=== PATIENT | female | born 1965 | race Caucasian/White ===

== ENCOUNTER 2016-10-15 07:50 | Emergency (ER) | payer SELFPAY ==
[~2016-10-15] VITALS: Ht 172.7 cm; Wt 68.0 kg
[~2016-10-15 07:50] MED LIST: CLON1 PO; IBUP-232 PO; ONDA4TAB7 PO; PARO10TA PO; ROBA750T PO
[2016-10-15 07:52] VITALS: BP 140/93; PULSE 98; RESP 20; TEMP 98; O2SAT 97
--- NOTE | 2016-10-15 08:07 | PD ---
HPI Chief Complaint: Laceration/Skin Injury Time Seen by Provider: 07:56 Travel History International Travel<30 days: No Contact w/Intl Traveler<30days: No Traveled to known affect area: No History of Present Illness HPI 51-year-old right-hand dominant female presents for evaluation of a cut to her left thumb. She reports that this morning prior to arrival she was cutting referred for a smoothie when she cut her left thumb. She has a wound to the left thumb which has been bleeding and this is the primary reason that she came in. She is not on any blood thinning medication. Last tetanus vaccination was within one year. She has no other complaints. PFSH Past Medical History Anxiety: Yes Depression: Yes Cardiovascular Problems: Yes Chest Pain: Yes Diminished Hearing: No Gastrointestinal Disorders: Yes Musculoskeletal: Yes Psychiatric: Yes Immunizations Current: Yes Myocardial Infarction: No Menopausal: Yes : 6 Para: 4 Miscarriage: 1 : 1 Tubal Ligation: Yes Social History Alcohol Use: Yes (6-8 BEERS DAILY) Tobacco Use: No Substance Use: No Allergies-Medications (Allergen,Severity, Reaction): Coded Allergies: Hydrocodone (Verified Allergy, Severe, Itching, 07/05/16) Sulfa (Verified Allergy, Severe, 07/05/16) Tramadol (Verified Allergy, Severe, Tachycardia, 07/05/16) Codeine (Verified Allergy, Unknown, 07/05/16) patient states that this medication makes her feel "funny" and prefers not to take it. Ultram (Verified Allergy, Unknown, 07/05/16) Reported Meds & Prescriptions Reported Meds & Active Scripts Active Robaxin (Methocarbamol) 750 Mg Tab 750 Mg PO TID PRN Ibuprofen 600 Mg Tab 600 Mg PO TID PRN Ondansetron Odt4 M1 4 Mg Tab 4 Mg PO Q6H PRN Reported Klonopin (Clonazepam) 1 Mg Tab 1 Mg PO BID PRN Paxil (Paroxetine HCl) 10 Mg Tab 10 Mg PO DAILY Review of Systems Musculoskeletal: No: Limited ROM Skin: Positive Other (laceration, bleeding) Neurologic: No: Paresthesia Physical Exam Narrative GENERAL: Well-developed well-nourished female in no acute distress SKIN: Warm and dry. On the left distal thumb there is a superficial linear laceration. There is another very superficial laceration adjacent. There is no subcutaneous tissue or bony or tendon visibility. CARDIOVASCULAR: Regular rate and rhythm. No murmur appreciated. RESPIRATORY: No accessory muscle use. Clear to auscultation. Breath sounds equal bilaterally. MUSCULOSKELETAL: No obvious deformities. Skin as noted above. Full range of motion of the affected thumb. Data Data Last Documented VS Vital Signs Date Time Temp Pulse Resp B/P Pulse Ox O2 Delivery O2 Flow Rate FiO2 10/15/16 07:52 98.0 98 20 140/93 97 Room Air MDM Medical Decision Making Medical Screen Exam Complete: Yes Emergency Medical Condition: Yes Medical Record Reviewed: Yes Differential Diagnosis Superficial laceration, puncture wound, uncontrolled bleeding, abrasion Narrative Course 51-year-old female with 2 very superficial lacerations to the distal left thumb which do not require primary repair as they are very superficial. They're not currently bleeding with the patient reports that her bleeding prior to arrival and she was having difficulty stopping the bleeding. A pressure dressing will be applied. Patient is encouraged to wear it for 2 days and then wash gently and reapply dressing daily until healed. She is stable for discharge. Departure Forms: Tests/Procedures, Work Release Enter return to work date: Oct 16, 2016 Additional Instructions: As discussed, leave the dressing on for 48 hours. When he removed it, wash gently with soap and water and apply antibiotic cream and clean bandages. It may bleed a small amount when you wash it so do no be alarmed if this happens. reapply a dressing daily for the next 1-2 weeks. Do not apply the dressing too tightly. Return for any evidence of infection such as increasing area of redness around the wound, red streaks up the arm, fevers. Med/Other Pt SpecificInfo: Wound Care Disposition: 01 DISCHARGE HOME Condition: Stable Alexander Haynes Oct 15, 2016 08:07
== END 2016-10-15 09:15 | disposition home or self-care (01) ==
LOC: NEPB 07:50
DX: S61.012A Laceration without foreign body of left thumb without damage to nail, initial encounter (principal); W45.8XXA Other foreign body or object entering through skin, initial encounter
CPT/HCPCS: 99282

== ENCOUNTER 2016-11-07 09:47 | Observation (INO) | payer SELFPAY ==
[~2016-11-07] VITALS: Ht 165.1 cm; Wt 80.0 kg
[2016-11-07 09:49] VITALS: BP 126/76; PULSE 83; RESP 18; TEMP 97.7; O2SAT 99
[2016-11-07 10:45] VITALS: RESP 18; O2SAT 99
[2016-11-07] MEDS ORDERED: ASPIRIN 325 MG TAB PO ONE (10:45)
[2016-11-07] MEDS ORDERED: SODIUM CHLORIDE 0.9% FLUSH 5 ML FLUSH IVF PRN ×2 (10:45→13:15)
--- NOTE | 2016-11-07 10:46 | PD ---
HPI Chief Complaint: Cardiac Complaint Time Seen by Provider: 10:23 Travel History International Travel<30 days: No Contact w/Intl Traveler<30days: No Traveled to known affect area: No History of Present Illness HPI The patient was seen and examined in the presence of the nurse. This patient complains of chest pain. Location is center sternum. Duration is 5 days. He describes it as a tightness and heaviness. It is not exertional. She denies personal history of cardiac disease. Reports a negative stress test about 5 years ago. She does have anxiety problems. No alleviating factors. PFSH Past Medical History Anxiety: Yes Depression: Yes Cardiovascular Problems: Yes Chest Pain: Yes Diminished Hearing: No Gastrointestinal Disorders: Yes Musculoskeletal: Yes Psychiatric: Yes Immunizations Current: Yes Myocardial Infarction: No ?: Not Menopausal: Yes : 6 Para: 4 Miscarriage: 1 : 1 Tubal Ligation: Yes Social History Alcohol Use: Yes (1-2 OCCASIONAL PER PT) Tobacco Use: No Substance Use: No Allergies-Medications (Allergen,Severity, Reaction): Coded Allergies: Hydrocodone (Verified Allergy, Severe, Itching, 11/07/16) Sulfa (Verified Allergy, Severe, 11/07/16) Tramadol (Verified Allergy, Severe, Tachycardia, 11/07/16) Codeine (Verified Allergy, Unknown, 11/07/16) patient states that this medication makes her feel "funny" and prefers not to take it. Ultram (Verified Allergy, Unknown, 11/07/16) Reported Meds & Prescriptions Reported Meds & Active Scripts Active Review of Systems General / Constitutional: No: Fever Eyes: No: Visual changes HENT: No: Headaches Cardiovascular: Positive: Chest Pain or Discomfort Respiratory: No: Shortness of Breath Gastrointestinal: No: Abdominal Pain Genitourinary: No: Dysuria Musculoskeletal: No: Pain Skin: No Rash Neurologic: No: Weakness Psychiatric: Positive: Anxiety, No: Depression Endocrine: No: Polydipsia Hematologic/Lymphatic: No: Easy Bruising Physical Exam Narrative GENERAL: Well-nourished, well-developed patient in no apparent distress. SKIN: Warm and dry. HEAD: Atraumatic. Normocephalic. EYES: Pupils equal and round. No scleral icterus. No injection or drainage. ENT: No nasal bleeding or discharge. Mucous membranes pink and moist. NECK: Trachea midline. No JVD. CARDIOVASCULAR: Regular rate and rhythm. No murmur appreciated. RESPIRATORY: No accessory muscle use. Clear to auscultation. Breath sounds equal bilaterally. GASTROINTESTINAL: Abdomen soft, non-tender, nondistended. Hepatic and splenic margins not palpable. MUSCULOSKELETAL: No obvious deformities. No clubbing. No cyanosis. No edema. Chest wall is very tender in the sternum but she says this is entirely different than the pain she's been having for the last 5 days. NEUROLOGICAL: Awake and alert. No obvious cranial nerve deficits. Motor grossly within normal limits. Normal speech. PSYCHIATRIC: Anxious mood and affect; insight and judgment normal. Data Data Last Documented VS Vital Signs Date Time Temp Pulse Resp B/P Pulse Ox O2 Delivery O2 Flow Rate FiO2 11/07/16 11:54 78 18 110/69 100 Room Air 11/07/16 09:53 2 11/07/16 09:49 97.7 Orders Electrocardiogram (11/07/16 10:40) Basic Metabolic Panel (Bmp) (11/07/16 10:40) Ckmb (Isoenzyme) Profile (11/07/16 10:40) Complete Blood Count With Diff (11/07/16 10:40) Prothrombin Time / Inr (Pt) (11/07/16 10:40) Act Partial Throm Time (Ptt) (11/07/16 10:40) Troponin I (11/07/16 10:40) Chest, Single Ap (11/07/16 10:40) Ecg Monitoring (11/07/16 10:40) Iv Access Insert/Monitor (11/07/16 10:40) Oximetry (11/07/16 10:40) Aspirin (Aspirin) (11/07/16 10:45) Sodium Chloride 0.9% Flush (Ns Flush) (11/07/16 10:45) Lorazepam (Ativan) (11/07/16 11:00) Labs Laboratory Tests Test 11/07/16 11:00 White Blood Count 3.9 TH/MM3 Red Blood Count 4.39 MIL/MM3 Hemoglobin 13.9 GM/DL Hematocrit 42.6 % Mean Corpuscular Volume 97.1 FL Mean Corpuscular Hemoglobin 31.8 PG Mean Corpuscular Hemoglobin 32.8 % Concent Red Cell Distribution Width 13.8 % Platelet Count 203 TH/MM3 Mean Platelet Volume 8.1 FL Neutrophils (%) (Auto) 42.9 % Lymphocytes (%) (Auto) 44.8 % Monocytes (%) (Auto) 10.1 % Eosinophils (%) (Auto) 1.2 % Basophils (%) (Auto) 1.0 % Neutrophils # (Auto) 1.7 TH/MM3 Lymphocytes # (Auto) 1.7 TH/MM3 Monocytes # (Auto) 0.4 TH/MM3 Eosinophils # (Auto) 0.0 TH/MM3 Basophils # (Auto) 0.0 TH/MM3 CBC Comment DIFF FINAL Differential Comment Prothrombin Time 10.2 SEC Prothromb Time International 0.9 RATIO Ratio Activated Partial 25.4 SEC Thromboplast Time Sodium Level 138 MEQ/L Potassium Level 3.7 MEQ/L Chloride Level 104 MEQ/L Carbon Dioxide Level 25.5 MEQ/L Anion Gap 9 MEQ/L Blood Urea Nitrogen 9 MG/DL Creatinine 0.58 MG/DL Estimat Glomerular Filtration 109 ML/MIN Rate Random Glucose 110 MG/DL Calcium Level 8.9 MG/DL Total Creatine Kinase 46 U/L Troponin I LESS THAN 0.02 NG/ML MDM Medical Decision Making Medical Screen Exam Complete: Yes Emergency Medical Condition: Yes Medical Record Reviewed: Yes Differential Diagnosis Differential diagnosis includes SD, angina, pericarditis, pleurisy, GERD, anxiety. Narrative Course I have reviewed the patient's electronic medical record. She is a frequent visitor to the ER. Was here one month ago with laceration. IV placed I reviewed the EKG which shows sinus rhythm but no ST elevation or ectopy I reviewed the chest x-ray and I noted the radiologist's report. I reviewed the films I don't see any significant thing that needs treatment. She has no symptoms consistent with rest or infection. Any infiltrate there is very minimal Extended cardiac monitoring shows sinus rhythm without ectopy CBC shows normal findings Metabolic profile is normal CK is normal Troponin is normal Coagulation studies are normal Gave her an aspirin and a dose of Ativan Patient has atypical pain as well as a different type of obvious musculoskeletal pain which she says is not like the pain that brought her here. She does have family history of urinary artery disease and I'm going to make her 23 hour observation in the chest pain center in order to rule out cardiac cause of her symptoms. It's possible this is anxiety driven Diagnosis Primary Impression: Chest pain in adult Admitting Information Admitting Physician Requests: Observation Garrick Mcguire MD Nov 07, 2016 10:46
[2016-11-07] MEDS ORDERED: LORazepam 1 MG TAB PO ONE (11:00)
--- NOTE | 2016-11-07 11:16 | RADRPT ---
EXAM DATE/TIME: 11/07/2016 10:44 [facility] COMPARISON: CHEST SINGLE AP, July 05, 2016, 16:27. INDICATIONS : Patient has felt tightness in her chest since Sunday. MEDICAL HISTORY : None. SURGICAL HISTORY : Bilateral breast augmentation. ENCOUNTER: Initial ACUITY: 3 days PAIN SCORE: 0/10 LOCATION: Bilateral chest FINDINGS: A single view of the chest demonstrates patchy airspace disease in the left base/lingula. Lungs other ann clear. Heart size is normal. 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 Osseous structures are otherwise int act. Patient appears to have had bilateral breast augmentation. CONCLUSION: 1. Nonspecific, patchy airspace disease in the left lower lung field. Findings could represent atelec tasis or early infiltrate. 2. Stable osseous changes with osteoarthritic findings in the right a.c. joint and an old healed frac ture deformity of the left clavicular diaphysis. Cristóbal Dale MD on November 07, 2016 at 11:13 Board Certified Radiologist. This report was verified electronically.
[2016-11-07 11:22] LABS: AUTOMATED NEUTROPHIL # 1.7 TH/MM3 (1.8-7.7); EOSINOPHIL % 1.2 % (0.0-4.0); HEMATOCRIT 42.6 % (35.0-46.0); HEMO FLAGS DIFF FINAL; LYMPH % 44.8 % (9.0-44.0); LYMPHOCYTE # 1.7 TH/MM3 (1.0-4.8); MEAN CELL VOLUME 97.1 FL (80.0-100.0); MEAN CORPUSCULAR HEMOGLOBIN 31.8 PG (27.0-34.0); MEAN CORPUSCULAR HGB CONC 32.8 % (32.0-36.0); MONO % 10.1 % (0.0-8.0); NEUT % 42.9 % (16.0-70.0); PLATELET COUNT 203 TH/MM3 (150-450); RED BLOOD COUNT 4.39 MIL/MM3 (4.00-5.30); RED CELL DISTRIBUTION WIDTH 13.8 % (11.6-17.2); WHITE BLOOD COUNT 3.9 TH/MM3 (4.0-11.0)
[2016-11-07 11:30] LABS: APTT (PATIENT) 25.4 SEC (24.3-30.1); INTERNATIONAL NORMALIZED RATIO 0.9 RATIO; PROTHROMBIN TIME - PATIENT 10.2 SEC (9.8-11.6)
[2016-11-07 11:45] LABS: ANION GAP 9 MEQ/L (5-15); BICARBONATE 25.5 MEQ/L (21.0-32.0); BLOOD UREA NITROGEN 9 MG/DL (7-18); CHLORIDE 104 MEQ/L (98-107); GLOMERULAR FILTRATION RATE 109 ML/MIN (>89); POTASSIUM 3.7 MEQ/L (3.5-5.1); SODIUM (NA) 138 MEQ/L (136-145)
[2016-11-07 11:52] LABS: CREATINE KINASE 46 U/L (26-192)
[2016-11-07 11:54] VITALS: BP 110/69; PULSE 78; RESP 18; O2SAT 100
--- NOTE | 2016-11-07 12:07 | EKG ---
Date Performed: 11/07/2016 Time Performed: 09:50:49 PTAGE: 51 years EKG: Sinus rhythm NORMAL ECG INTERPRETATION BASED ON A DEFAULT AGE OF 38 YEARS PREVIOUS TRACING : 06/11/2016 20.23 DOCTOR: Maunel Wilson Interpretating Date/Time 11/07/2016 12:05:39
[2016-11-07] MEDS ORDERED: ONDANSETRON HCL 4 MG/2 ML VIAL IV PRN (13:15)
[2016-11-07] MEDS ORDERED: ACETAMINOPHEN 500 MG CPLT PO PRN (13:15)
[2016-11-07] MEDS ORDERED: ACETAMINOPHEN/HYDROcodone 325 MG/7.5 MG TAB PO PRN (13:15)
--- NOTE | 2016-11-07 13:54 | HHI.HP ---
[facility] Primary Care Physician Jose Russell MD Chief Complaint Chest pain History of Present Illness This is a 51-year-old female that presents to the ED via private vehicle complaining of chest discomfort, coughing, and fever. The chest discomfort has been intermittent for last 5 days. She describes as "it feels like an elephant sitting on my chest." When it occurs it lasts anywhere from 2 hours to all day long. She gets short of breath with it. No nausea diaphoresis. She also states that she's had a greenish/yellowish color productive cough for the last 2 weeks. She also had fevers with the highest being 102 and that was 4 days ago. She called her primary care physician last week and was told that she probably has pleurisy and would have to pay $100 to see her. She states that she was advised to go to the ED last week. She also has had intermittent sensation of her arms going numb with tingling in both hands. This is not necessarily associated with the episodes of chest discomfort. Recent travel. States that she had a stress test at this hospital before. I reviewed her records and she had a nonischemic Anoop protocol ETT stress test in 2014. Review of Systems General: Patient denies complaints of fever. Denies recent travel. HEENT: Patient denies headache, sore throat, difficulty swallowing. Cardiovascular: Has the chest discomfort as mentioned above. Denies sensation of heart beating rapidly or irregularly. No syncope. Respiratory: Complains of shortness of breath. She also has had a yellowish to greenish color productive cough for the last 2 weeks. Denies inspirational chest discomfort. Denies wheezing or hemoptysis. GI: Patient denies nausea, vomiting, diarrhea, abdominal pain, bloody stools. Musculoskeletal: Patient denies joint pain or edema. Denies calf pain or edema. Neurovascular: Patient complained of numbness in her arms intermittently as well as having tingling in her fingertips to both hands. Patient denies weakness in extremities. Denies headache. Endocrine: Denies polyuria and polydipsia. Hematologic: Denies easy bruising. Skin: Denies rash or itching. Past Family Social History Allergies: Coded Allergies: Hydrocodone (Verified Allergy, Severe, Itching, 11/07/16) Sulfa (Verified Allergy, Severe, 11/07/16) Tramadol (Verified Allergy, Severe, Tachycardia, 11/07/16) Codeine (Verified Allergy, Unknown, 11/07/16) patient states that this medication makes her feel "funny" and prefers not to take it. Ultram (Verified Allergy, Unknown, 11/07/16) Past Medical History Anxiety. Past Surgical History Tubal ligation, right index finger, and left wrist. Reported Medications Reported Meds & Active Scripts Active Family History Her father at age 72 of a myocardial infarction. Social History Patient is a nonsmoker. She stopped drinking alcohol about a year ago but prior to that she would drink about 12 beers a day and has done so for many years. Denies illicit drugs. Physical Exam Vital Signs Vital Signs Date Time Temp Pulse Resp B/P Pulse Ox O2 Delivery O2 Flow Rate FiO2 11/07/16 11:54 78 18 110/69 100 Room Air 11/07/16 10:45 18 99 11/07/16 09:53 84 99 Nasal Cannula 2 11/07/16 09:49 97.7 83 18 126/76 99 Physical Exam GENERAL: This is a well-nourished, well-developed patient, in no apparent distress but gets a little anxious as she is talking about her anxiety. Patient speaks in clear complete sentences. Patient is pleasant. HEENT: Head is atraumatic and normocephalic. Neck is supple without lymphadenopathy and trachea is midline. No JVD or carotid bruits. CARDIOVASCULAR: Regular rate and rhythm without murmurs, gallops, or rubs. RESPIRATORY: Most of her anterior chest wall is tender to palpate. He would likely pressing on the area. This is the discomfort that she has been having. Clear to auscultation. Breath sounds equal bilaterally. No wheezes, rales, or rhonchi. No use of accessory muscles. GASTROINTESTINAL: Abdomen is nontender, nondistended. Abdomen soft. No obvious pulsatile mass or bruit. No CVA tenderness. Strong femoral pulses bilaterally. Normal bowel sounds in all quadrants. MUSCULOSKELETAL: Patient is moving upper and lower extremities freely. No calf tenderness or edema, no Homans sign. Strong pulses in upper and lower extremities. NEUROLOGICAL: Patient is alert and oriented. Cranial nerves 2-12 are grossly intact. No focal deficits and speech is clear. SKIN: No rash and turgor is normal. Laboratory Laboratory Tests Test 11/07/16 11:00 White Blood Count 3.9 Red Blood Count 4.39 Hemoglobin 13.9 Hematocrit 42.6 Mean Corpuscular Volume 97.1 Mean Corpuscular Hemoglobin 31.8 Mean Corpuscular Hemoglobin 32.8 Concent Red Cell Distribution Width 13.8 Platelet Count 203 Mean Platelet Volume 8.1 Neutrophils (%) (Auto) 42.9 Lymphocytes (%) (Auto) 44.8 Monocytes (%) (Auto) 10.1 Eosinophils (%) (Auto) 1.2 Basophils (%) (Auto) 1.0 Neutrophils # (Auto) 1.7 Lymphocytes # (Auto) 1.7 Monocytes # (Auto) 0.4 Eosinophils # (Auto) 0.0 Basophils # (Auto) 0.0 CBC Comment DIFF FINAL Differential Comment Prothrombin Time 10.2 Prothromb Time International 0.9 Ratio Activated Partial 25.4 Thromboplast Time Sodium Level 138 Potassium Level 3.7 Chloride Level 104 Carbon Dioxide Level 25.5 Anion Gap 9 Blood Urea Nitrogen 9 Creatinine 0.58 Estimat Glomerular Filtration 109 Rate Random Glucose 110 Calcium Level 8.9 Total Creatine Kinase 46 Troponin I LESS THAN 0.02 Result Diagram: 11/07/16 1100 11/07/16 1100 Imaging Last 24 hours Impressions Chest X-Ray 11/07/16 1040 Signed Impressions: Service Date/Time: Monday, November 07, 2016 10:44 - CONCLUSION: 1. Nonspecific , patchy airspace disease in the left lower lung field. Findings could represent atelectasis or early infiltrate. 2. Stable osseous changes with osteoarthritic findings in the right a.c. joint and an old healed fracture deformity of the left clavicular diaphysis. Cristóbal Dale MD Course Initial EKG is sinus rhythm without significant ST segment depressions or elevations. Assessment and Plan Assessment and Plan * Chest pain: Patient was admitted to the chest pain center and was going to have serial cardiac enzymes and EKGs for ruling out purposes. She would've been seen by Dr. Mary cardiology and the chest pain center however the patient apparently abruptly decided to leave AGAINST MEDICAL ADVICE and was released from the ER AGAINST MEDICAL ADVICE rather suddenly. I found out later. She has not seen by teletypesetter operator. Her symptoms did appear to be musculoskeletal and may been from coughing. Her chest x-ray revealed a possible early infiltrate. We were going to start on antibiotics but she left before getting initial antibiotic or prescription. Further cardiac testing would've been determined after Dr. Mary evaluated her. * Patient left AGAINST MEDICAL ADVICE. Kartik Harrison Nov 07, 2016 13:54
[2016-11-07] MEDS ORDERED: AZITHROMYCIN 250 MG TAB PO ONE (14:00)
[2016-11-07] MEDS ORDERED: SODIUM CHLORIDE 0.9% FLUSH 5 ML FLUSH IVF SCH (21:00)
== END 2016-11-07 13:36 | disposition left against medical advice (07) ==
LOC: NEPC 09:47 → NEDA 12:24
PROVIDERS: ADMIT Internal Medicine Interventional Cardiology; ATTEND Internal Medicine Interventional Cardiology
DX: R07.9 Chest pain, unspecified (principal); F41.9 Anxiety disorder, unspecified; R05 Cough; R50.9 Fever, unspecified; R06.02 Shortness of breath; R20.2 Paresthesia of skin
CPT/HCPCS: 71010; 80048; 82550; 84484; 85025; 85610; 85730; 93005; 99285; G0378

== ENCOUNTER 2017-03-21 09:37 | Emergency (ER) | payer SELFPAY ==
[~2017-03-21] VITALS: Ht 165.1 cm; Wt 80.0 kg
[2017-03-21 09:38] VITALS: BP 119/85; PULSE 95; RESP 16; TEMP 98.5; O2SAT 99
== END 2017-03-21 12:21 | disposition left against medical advice (07) ==
LOC: NED 09:37
DX: Z53.21 Procedure and treatment not carried out due to patient leaving prior to being seen by health care provider (principal)
CPT/HCPCS: 99281

== ENCOUNTER 2017-07-25 07:44 | Emergency (ER) | payer SELFPAY ==
[~2017-07-25] VITALS: Ht 165.1 cm; Wt 70.0 kg
[2017-07-25 07:46] VITALS: BP 148/98; PULSE 92; RESP 14; TEMP 97.9; O2SAT 95
--- NOTE | 2017-07-25 08:08 | PD ---
HPI Chief Complaint: Cold / Flu Symptoms Time Seen by Provider: 07:59 Travel History International Travel<30 days: No Contact w/Intl Traveler<30days: No Traveled to known affect area: No History of Present Illness HPI 82-year-old female presents the emergency Department with worsening upper respiratory symptoms including sinus congestion, headache, pressure, postnasal drip, and sore throat. She states she gets current sinus trouble with allergies. She has been using Afrin without improvement. She states fever last night of 101. Complaining of bilateral ear pain and pressure more the left than the right. She denies cough or shortness of breath. No nausea vomiting or diarrhea. She has allergies to hydrocodone, tramadol, codeine, and sulfa. PFSH Past Medical History Anxiety: Yes Depression: Yes Cardiovascular Problems: Yes Chest Pain: Yes Diminished Hearing: No Gastrointestinal Disorders: Yes Musculoskeletal: Yes Psychiatric: Yes Respiratory: Yes (asthma) Immunizations Current: Yes Myocardial Infarction: No ?: Not Menopausal: Yes : 6 Para: 4 Miscarriage: 1 : 1 Tubal Ligation: Yes Social History Alcohol Use: Yes (1-2 OCCASIONAL PER PT) Tobacco Use: No Substance Use: No Allergies-Medications (Allergen,Severity, Reaction): Coded Allergies: Sulfa (Sulfonamide Antibiotics) (Unverified Allergy, Severe, 04/03/17) hydrocodone (Unverified Allergy, Severe, Itching, 04/03/17) codeine (Unverified Allergy, Unknown, 04/03/17) patient states that this medication makes her feel "funny" and prefers not to take it. tramadol (Unverified Allergy, Unknown, 04/03/17) Reported Meds & Prescriptions Reported Meds & Active Scripts Active Amoxicillin 875 Mg Tab 875 Mg PO BID 10 Days Flonase Nasal [place] (Fluticasone Nasal [place]) 50 Mcg/Act [place] 100 Mcg EACH NARE BID Review of Systems Except as stated in HPI: all other systems reviewed are Neg General / Constitutional: No: Fever Eyes: No: Visual changes HENT: Positive: Headaches, Sore Throat, Rhinitis, Rhinorrhea, Congestion, Earache, No: Vertigo, Lightheadedness, Nosebleed, Neck Stiffness, Neck Pain, Gingival Bleeding, Dental Difficulties, Ear Discharge Cardiovascular: No: Chest Pain or Discomfort Respiratory: No: Shortness of Breath Gastrointestinal: No: Abdominal Pain Genitourinary: No: Dysuria Musculoskeletal: No: Pain Skin: No Rash Neurologic: No: Weakness Psychiatric: No: Depression Endocrine: No: Polydipsia Hematologic/Lymphatic: No: Easy Bruising Physical Exam Narrative GENERAL: Patient appears in mild distress. SKIN: Warm and dry. Normal color. Normal turgor. HEAD: Atraumatic. Normocephalic. Patient has moderate sinus tenderness in both frontal and maxillary sinuses bilaterally. EYES: Pupils equal and round. No scleral icterus. No injection or drainage. ENT: No nasal bleeding or discharge. Mucous membranes pink and moist. Patient is purulent sinus drainage bilaterally. TMs are dull with injection on the left. Posterior pharynx is erythematous with postnasal drip noted and cobblestoning noted in the posterior pharynx. Not significantly swollen and there is no exudate. NECK: Trachea midline. Supple nontender. No significant lymphadenopathy. CARDIOVASCULAR: Regular rate and rhythm. RESPIRATORY: No accessory muscle use. Clear to auscultation. Breath sounds equal bilaterally. GASTROINTESTINAL: Abdomen soft, non-tender, nondistended. Hepatic and splenic margins not palpable. MUSCULOSKELETAL: Extremities without clubbing, cyanosis, or edema. No obvious deformities. NEUROLOGICAL: Awake and alert. No obvious cranial nerve deficits. Motor grossly within normal limits. Five out of 5 muscle strength in the arms and legs. Normal speech. PSYCHIATRIC: Appropriate mood and affect; insight and judgment normal. Data Data Last Documented VS Vital Signs Date Time Temp Pulse Resp B/P (MAP) Pulse Ox O2 Delivery O2 Flow Rate FiO2 07/25/17 08:20 07/25/17 07:46 97.9 92 14 95 Orders Orders Ed Discharge Order (07/25/17 08:09) [facility] Medical Decision Making Medical Screen Exam Complete: Yes Emergency Medical Condition: Yes Medical Record Reviewed: Yes Differential Diagnosis Allergic rhinitis. Sinusitis. Postnasal drip. Cough. Narrative Course Patient was treated with Flonase nasal spray 2 sprays each nostril daily. Recommend [id number] Zyrtec or Leela or Claritin. Patient is given amoxicillin 875 twice a day 10 days. Recommend saline nasal rinses well. Work note for today is given. Patient follow up if symptoms do not improve or worsen as needed. Diagnosis Primary Impression: Acute pansinusitis, unspecified Qualified Codes: J01.40 - Acute pansinusitis, unspecified Referrals: [facility] Primary Care Physician Patient Instructions: General Instructions, Rhinosinusitis (ED) Additional Instructions: Patient was treated with Flonase nasal spray 2 sprays each nostril daily. Recommend [id number] Zyrtec or Leela or Claritin. Patient is given amoxicillin 875 twice a day 10 days. Recommend saline nasal rinses well. Work note for today is given. Patient follow up if symptoms do not improve or worsen as needed. Med/Other Pt SpecificInfo: Prescription(s) given Scripts Amoxicillin (Amoxicillin) 875 Mg Tab 875 MG PO BID for Infection for 10 Days, #20 TAB 0 Refills Prov: Asha Johnson MD 07/25/17 Fluticasone Nasal [place] (Flonase Nasal [place]) 50 Mcg/Act [place] 100 MCG EACH NARE BID for Allergies, #1 BOTTLE 0 Refills Prov: Asha Johnson MD 07/25/17 Disposition: 01 DISCHARGE HOME Condition: Stable Scottie Pollard Jul 25, 2017 08:08
[2017-07-25] MEDS ORDERED: FLUT1SPR5 EACH NARE (08:09)
[2017-07-25] MEDS ORDERED: AMOX875T PO (08:09)
== END 2017-07-25 08:43 | disposition home or self-care (01) ==
LOC: NEPD 07:44
DX: J01.40 Acute pansinusitis, unspecified (principal)
CPT/HCPCS: 99284

== ENCOUNTER 2017-08-25 07:46 | Emergency (ER) | payer OTHER ==
[~2017-08-25 07:46] MED LIST changes: +AMOX875T PO; -CLON1 PO; +FLUT1SPR5 EACH NARE; -IBUP-232 PO; -ONDA4TAB7 PO; -PARO10TA PO; -ROBA750T PO
[2017-08-25 07:48] VITALS: BP 178/97; PULSE 104; RESP 16; TEMP 98.2; O2SAT 99
[2017-08-25] MEDS ORDERED: IBUP1TAB7 PO (08:08)
[2017-08-25] MEDS ORDERED: ROBA500T PO (08:08)
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
[2017-08-25] MEDS ORDERED: METHOCARBAMOL 500 MG TAB PO ONE (08:15)
== END 2017-08-25 08:39 | disposition home or self-care (01) ==
LOC: NEPD 07:46
DX: S46.811A Strain of other muscles, fascia and tendons at shoulder and upper arm level, right arm, initial encounter (principal); S46.812A Strain of other muscles, fascia and tendons at shoulder and upper arm level, left arm, initial encounter; S16.1XXA Strain of muscle, fascia and tendon at neck level, initial encounter; F41.9 Anxiety disorder, unspecified; F32.9 Major depressive disorder, single episode, unspecified; J45.909 Unspecified asthma, uncomplicated; V43.52XA Car driver injured in collision with other type car in traffic accident, initial encounter; Z88.2 Allergy status to sulfonamides; Z88.5 Allergy status to narcotic agent
CPT/HCPCS: 99283

== ENCOUNTER 2017-09-07 06:05 | Emergency (ER) | payer SELFPAY ==
[~2017-09-07] VITALS: Ht 165.1 cm; Wt 70.0 kg
[~2017-09-07 06:05] MED LIST changes: -AMOX875T PO; -FLUT1SPR5 EACH NARE; +IBUP1TAB7 PO; +ROBA500T PO
[2017-09-07 06:07] VITALS: BP 133/96; PULSE 100; RESP 18; TEMP 98.4; O2SAT 100
[2017-09-07] MEDS ORDERED: PROCHLORPERAZINE INJ 10 MG/2 ML VIAL IV PUSH ONE (06:30)
[2017-09-07] MEDS ORDERED: SODIUM CHLOR 0.9% 1000 ML INJ 1,000 ML IV ONE (06:30)
[2017-09-07 06:41] VITALS: BP 131/87; PULSE 87; RESP 22; O2SAT 98
[2017-09-07] MEDS ORDERED: LORazepam 2 MG/ML VIAL IV PUSH ONE (06:45)
--- NOTE | 2017-09-07 06:45 | PD ---
HPI Chief Complaint: GI Complaint Time Seen by Provider: 06:17 Travel History International Travel<30 days: No Contact w/Intl Traveler<30days: No Traveled to known affect area: No History of Present Illness HPI 52yo F with PMH of anxiety presents to the ED with c/o nausea for 2 days. States she has been unable to eat and is dry heaving. Pt also has frontal headache since last night. Also with dysuria. Denies any fever, chest pain, sob, neck pain, focal weakness or numbness, or abdominal pain. PFSH Past Medical History Asthma: Yes Anxiety: Yes Depression: Yes Cardiovascular Problems: Yes Chest Pain: Yes Diminished Hearing: No Gastrointestinal Disorders: Yes Musculoskeletal: Yes Psychiatric: Yes Respiratory: Yes (asthma) Immunizations Current: Yes Myocardial Infarction: No ?: Not Menopausal: Yes : 6 Para: 4 Miscarriage: 1 : 1 Tubal Ligation: Yes Social History Alcohol Use: Yes (1-2 OCCASIONAL PER PT) Tobacco Use: No Substance Use: No Allergies-Medications (Allergen,Severity, Reaction): Coded Allergies: Sulfa (Sulfonamide Antibiotics) (Unverified Allergy, Severe, 09/07/17) hydrocodone (Unverified Allergy, Severe, Itching, 09/07/17) codeine (Unverified Allergy, Unknown, 09/07/17) patient states that this medication makes her feel "funny" and prefers not to take it. tramadol (Unverified Allergy, Unknown, 09/07/17) Reported Meds & Prescriptions Reported Meds & Active Scripts Active Promethazine (Promethazine HCl) 12.5 Mg Tab 1-2 Tab PO Q6H PRN Ibuprofen 800 Mg Tab 800 Mg PO Q6HR PRN Robaxin (Methocarbamol) 500 Mg Tab 500 Mg PO QID PRN Review of Systems Except as stated in HPI: all other systems reviewed are Neg Physical Exam Narrative GENERAL: 52yo F in mild distress. SKIN: Focused skin assessment warm/dry. HEAD: Atraumatic. Normocephalic. EYES: Pupils equal and round at 3mm bilaterally. EOMI. ENT: No nasal bleeding or discharge. Mucous membranes pink and moist. NECK: Trachea midline. No JVD. CARDIOVASCULAR: Regular rate and rhythm. No murmur appreciated. RESPIRATORY: Pt is hyperventilating. Clear to auscultation. Breath sounds equal bilaterally. GASTROINTESTINAL: Abdomen soft, non-tender, nondistended. MUSCULOSKELETAL: No obvious deformities. No clubbing. No cyanosis. No edema. NEUROLOGICAL: Awake and alert. No obvious cranial nerve deficits. Motor grossly within normal limits. Normal speech. PSYCHIATRIC: Tearful. Anxious appearing. Data Data Last Documented VS Vital Signs Date Time Temp Pulse Resp B/P (MAP) Pulse Ox O2 Delivery O2 Flow Rate FiO2 09/07/17 06:41 87 22 131/87 (102) 98 Room Air 09/07/17 06:07 98.4 Orders Orders Complete Blood Count With Diff (09/07/17 06:27) Basic Metabolic Panel (Bmp) (09/07/17 06:27) Urinalysis - C+S If Indicated (09/07/17 06:27) Influenzae A/B Antigen (09/07/17 06:27) Prochlorperazine Inj (Compazine Inj) (09/07/17 06:30) Sodium Chlor 0.9% 1000 Ml Inj (Ns 1000 M (09/07/17 06:30) Lorazepam Inj (Ativan Inj) (09/07/17 06:45) Ed Discharge Order (09/07/17 08:19) Labs Laboratory Tests Test 09/07/17 06:35 09/07/17 07:30 White Blood Count 3.4 TH/MM3 Red Blood Count 4.24 MIL/MM3 Hemoglobin 14.0 GM/DL Hematocrit 41.0 % Mean Corpuscular Volume 96.5 FL Mean Corpuscular Hemoglobin 32.9 PG Mean Corpuscular Hemoglobin Concent 34.1 % Red Cell Distribution Width 13.3 % Platelet Count 232 TH/MM3 Mean Platelet Volume 7.6 FL Neutrophils (%) (Auto) 49.2 % Lymphocytes (%) (Auto) 40.1 % Monocytes (%) (Auto) 8.7 % Eosinophils (%) (Auto) 0.9 % Basophils (%) (Auto) 1.1 % Neutrophils # (Auto) 1.7 TH/MM3 Lymphocytes # (Auto) 1.4 TH/MM3 Monocytes # (Auto) 0.3 TH/MM3 Eosinophils # (Auto) 0.0 TH/MM3 Basophils # (Auto) 0.0 TH/MM3 CBC Comment DIFF FINAL Differential Comment Blood Urea Nitrogen 12 MG/DL Creatinine 0.73 MG/DL Random Glucose 111 MG/DL Calcium Level 9.4 MG/DL Sodium Level 137 MEQ/L Potassium Level 3.3 MEQ/L Chloride Level 101 MEQ/L Carbon Dioxide Level 24.5 MEQ/L Anion Gap 12 MEQ/L Estimat Glomerular Filtration Rate 83 ML/MIN Urine Color YELLOW Urine Turbidity HAZY Urine pH 6.5 Urine Specific [place] 1.030 Urine Protein 30 mg/dL Urine Glucose (UA) NEG mg/dL Urine Ketones 80 mg/dL Urine Occult Blood NEG Urine Nitrite NEG Urine Bilirubin NEG Urine Urobilinogen 2.0 MG/DL Urine Leukocyte Esterase NEG Urine RBC LESS THAN 1 /hpf Urine WBC 1 /hpf Urine Squamous Epithelial Cells 22 /hpf Urine Mucus MANY /lpf Microscopic Urinalysis Comment CULT NOT INDICATED MDM Medical Decision Making Medical Screen Exam Complete: Yes Emergency Medical Condition: Yes Differential Diagnosis Anxiety vs. sinus headache vs. migraine headache vs. UTI Narrative Course 52yo F with multiple complaints. Pt appears very anxious, will give ativan. No red flags for headache. Will give compazine and NS IVF and reevaluate. Labs , UA, influenza pending. Sign out to next team to follow up. Pt has not had her menstrual period for 3 years. Diagnosis Primary Impression: Nausea Scripts Promethazine (Promethazine) 12.5 Mg Tab 1-2 TAB PO Q6H Y for NAUSEA OR VOMITING, #15 TAB 0 Refills Prov: Stephanie Louise MD 09/07/17 Lana Mir DO Sep 07, 2017 06:45
[2017-09-07 07:02] LABS: AUTOMATED NEUTROPHIL # 1.7 TH/MM3 (1.8-7.7); BASOPHIL % 1.1 % (0.0-2.0); EOSINOPHIL % 0.9 % (0.0-4.0); LYMPH % 40.1 % (9.0-44.0); LYMPHOCYTE # 1.4 TH/MM3 (1.0-4.8); MEAN CELL VOLUME 96.5 FL (80.0-100.0); MEAN CORPUSCULAR HEMOGLOBIN 32.9 PG (27.0-34.0); MEAN CORPUSCULAR HGB CONC 34.1 % (32.0-36.0); MEAN PLATELET VOLUME 7.6 FL (7.0-11.0); MONO % 8.7 % (0.0-8.0); MONOCYTE # 0.3 TH/MM3 (0-0.9); NEUT % 49.2 % (16.0-70.0); PLATELET COUNT 232 TH/MM3 (150-450); RED BLOOD COUNT 4.24 MIL/MM3 (4.00-5.30); RED CELL DISTRIBUTION WIDTH 13.3 % (11.6-17.2); WHITE BLOOD COUNT 3.4 TH/MM3 (4.0-11.0)
[2017-09-07 07:31] LABS: BICARBONATE 24.5 MEQ/L (21.0-32.0); CALCIUM 9.4 MG/DL (8.5-10.1); CREATININE 0.73 MG/DL (0.50-1.00)
[2017-09-07 07:58] LABS: BLOOD, URINE NEG (NEG); GLUCOSE,URINE NEG (NEG); KETONE, URINE 80 mg/dL (NEG); MUCUS URINE MANY /lpf (OCC); NITRITE,URINE NEG (NEG); PH, URINE 6.5 (5.0-8.5); SQUAMOUS EPITHELIAL CELL URINE 22 /hpf (0-5); URINE COLOR YELLOW (YELLW/STRAW); URINE LEUKOCYTE ESTERASE NEG (NEG)
[2017-09-07 08:03] LABS: BILIRUBIN, URINE NEG (NEG)
[2017-09-07] MEDS ORDERED: PROM12.54 PO (08:19)
--- NOTE | 2017-09-07 08:19 | PD ---
Data Data Last Documented VS Vital Signs Date Time Temp Pulse Resp B/P (MAP) Pulse Ox O2 Delivery O2 Flow Rate FiO2 09/07/17 06:41 87 22 131/87 (102) 98 Room Air 09/07/17 06:07 98.4 Orders Orders Complete Blood Count With Diff (09/07/17 06:27) Basic Metabolic Panel (Bmp) (09/07/17 06:27) Urinalysis - C+S If Indicated (09/07/17 06:27) Influenzae A/B Antigen (09/07/17 06:27) Prochlorperazine Inj (Compazine Inj) (09/07/17 06:30) Sodium Chlor 0.9% 1000 Ml Inj (Ns 1000 M (09/07/17 06:30) Lorazepam Inj (Ativan Inj) (09/07/17 06:45) Ed Discharge Order (09/07/17 08:19) Labs Laboratory Tests Test 09/07/17 06:35 09/07/17 07:30 White Blood Count 3.4 TH/MM3 Red Blood Count 4.24 MIL/MM3 Hemoglobin 14.0 GM/DL Hematocrit 41.0 % Mean Corpuscular Volume 96.5 FL Mean Corpuscular Hemoglobin 32.9 PG Mean Corpuscular Hemoglobin Concent 34.1 % Red Cell Distribution Width 13.3 % Platelet Count 232 TH/MM3 Mean Platelet Volume 7.6 FL Neutrophils (%) (Auto) 49.2 % Lymphocytes (%) (Auto) 40.1 % Monocytes (%) (Auto) 8.7 % Eosinophils (%) (Auto) 0.9 % Basophils (%) (Auto) 1.1 % Neutrophils # (Auto) 1.7 TH/MM3 Lymphocytes # (Auto) 1.4 TH/MM3 Monocytes # (Auto) 0.3 TH/MM3 Eosinophils # (Auto) 0.0 TH/MM3 Basophils # (Auto) 0.0 TH/MM3 CBC Comment DIFF FINAL Differential Comment Blood Urea Nitrogen 12 MG/DL Creatinine 0.73 MG/DL Random Glucose 111 MG/DL Calcium Level 9.4 MG/DL Sodium Level 137 MEQ/L Potassium Level 3.3 MEQ/L Chloride Level 101 MEQ/L Carbon Dioxide Level 24.5 MEQ/L Anion Gap 12 MEQ/L Estimat Glomerular Filtration Rate 83 ML/MIN Urine Color YELLOW Urine Turbidity HAZY Urine pH 6.5 Urine Specific [place] 1.030 Urine Protein 30 mg/dL Urine Glucose (UA) NEG mg/dL Urine Ketones 80 mg/dL Urine Occult Blood NEG Urine Nitrite NEG Urine Bilirubin NEG Urine Urobilinogen 2.0 MG/DL Urine Leukocyte Esterase NEG Urine RBC LESS THAN 1 /hpf Urine WBC 1 /hpf Urine Squamous Epithelial Cells 22 /hpf Urine Mucus MANY /lpf Microscopic Urinalysis Comment CULT NOT INDICATED MDM Supervised Visit with LUNA: Yes Narrative Course This is a 52-year-old female who presents to the emergency nausea, vomiting and generalized malaise and body aches over the past several days. I suspect she has a spiral syndrome. She is a benign physical exam and Labs are reassuring. Patient will be discharged home with anti-emetics. Diagnosis Primary Impression: Viral syndrome Med/Other Pt SpecificInfo: Prescription(s) given Scripts Promethazine (Promethazine) 12.5 Mg Tab 1-2 TAB PO Q6H Y for NAUSEA OR VOMITING, #15 TAB 0 Refills Prov: Stephanie Louise MD 09/07/17 Disposition: 01 DISCHARGE HOME Condition: Stable Stephanie Louise MD Sep 07, 2017 08:19
== END 2017-09-07 08:52 | disposition home or self-care (01) ==
LOC: NEPC 06:05
DX: B34.9 Viral infection, unspecified (principal); R11.2 Nausea with vomiting, unspecified; R53.81 Other malaise; R51 Headache; R30.0 Dysuria; M79.1 Myalgia; F41.9 Anxiety disorder, unspecified; Z87.09 Personal history of other diseases of the respiratory system; Z86.79 Personal history of other diseases of the circulatory system; Z87.19 Personal history of other diseases of the digestive system; Z87.39 Personal history of other diseases of the musculoskeletal system and connective tissue
CPT/HCPCS: 80048; 81001; 85025; 87804; 96374; 96375; 99284; J0780; J2060; J7030

== ENCOUNTER 2017-11-02 05:13 | Emergency (ER) | payer SELFPAY ==
[~2017-11-02] VITALS: Ht 165.1 cm; Wt 70.0 kg
[~2017-11-02 05:13] MED LIST changes: +PROM12.54 PO
[2017-11-02 05:15] VITALS: BP 113/83; PULSE 79; RESP 18; TEMP 97.4; O2SAT 99
[2017-11-02] MEDS ORDERED: PRED50 PO (13:23)
== END 2017-11-02 05:40 | disposition left against medical advice (07) ==
LOC: NED 05:13
DX: R06.02 Shortness of breath (principal)
CPT/HCPCS: 99281

== ENCOUNTER 2017-11-02 11:59 | Emergency (ER) | payer SELFPAY ==
[~2017-11-02] VITALS: Ht 172.7 cm; Wt 68.0 kg
[2017-11-02 12:06] VITALS: BP 112/68; PULSE 102; RESP 22; TEMP 97.8; O2SAT 97
[2017-11-02] MEDS ORDERED: PRED50 PO (13:23)
--- NOTE | 2017-11-02 13:23 | PD ---
HPI . Dyspnea Chief Complaint: Respiratory Symptoms Time Seen by Provider: 12:45 Travel History International Travel<30 days: No Contact w/Intl Traveler<30days: No Traveled to known affect area: No History of Present Illness HPI This patient presents with a chief complaint of shortness of breath. She states that she has a history of asthma but has not had any problems with her asthma in many years. She states that she was exposed to a chemical 2 days ago and has had increasing symptoms since then. She states that she was seen at an outside facility 2 days ago. She reportedly refused workup. She tells me that she was seen here earlier today but left after triage when she learned that her oxygen saturation was 100%. She then went to work. She was having some increased difficulty breathing while at work and EMS was called. She states that she was evaluated by the medics and was told that she was probably having an anxiety attack. She was sent home from work. She has continued to have dyspnea and decided to present us at this point for further evaluation. She states that her symptoms are severe. Her shortness is of breath is exacerbated by movement. It is associated with feeling weak and dizzy. PFSH Past Medical History Asthma: Yes Anxiety: Yes Depression: Yes Heart Rhythm Problems: No Cancer: No Cardiovascular Problems: Yes Chest Pain: Yes Diminished Hearing: No Gastrointestinal Disorders: Yes Musculoskeletal: Yes Psychiatric: Yes Respiratory: Yes (asthma) Immunizations Current: Yes Myocardial Infarction: No Tetanus Vaccination: < 5 Years ?: Not Menopausal: Yes : 6 Para: 4 Miscarriage: 1 : 1 Tubal Ligation: Yes Social History Alcohol Use: Yes (1-2 OCCASIONAL PER PT) Tobacco Use: No Substance Use: No Allergies-Medications (Allergen,Severity, Reaction): Coded Allergies: Sulfa (Sulfonamide Antibiotics) (Unverified Allergy, Severe, 11/02/17) hydrocodone (Unverified Allergy, Severe, Itching, 11/02/17) codeine (Unverified Allergy, Unknown, 11/02/17) patient states that this medication makes her feel "funny" and prefers not to take it. tramadol (Unverified Allergy, Unknown, 11/02/17) Reported Meds & Prescriptions Reported Meds & Active Scripts Active No Active Prescriptions or Reported Medications Review of Systems Except as stated in HPI: all other systems reviewed are Neg Physical Exam Narrative GENERAL: Awake and alert and in no acute distress. SKIN: Warm and dry. Normal color and turgor. HEAD: Normocephalic/atraumatic. EYES: Pupils are equal. Extraocular movements are intact. Delay NECK: Normal range of motion. CARDIOVASCULAR: Regular rate and rhythm. RESPIRATORY: Speaking in complete sentences with no respiratory distress. Nonlabored respirations. Lungs are clear with full air movement throughout. MUSCULOSKELETAL: Atraumatic. NEUROLOGICAL: Nonfocal. PSYCHIATRIC: Appropriate mood and affect. Data Data Last Documented VS Vital Signs Date Time Temp Pulse Resp B/P (MAP) Pulse Ox O2 Delivery O2 Flow Rate FiO2 11/02/17 12:06 97.8 102 22 112/68 (83) 97 MDM Medical Decision Making Medical Screen Exam Complete: Yes Emergency Medical Condition: Yes Differential Diagnosis Differential diagnosis of dyspnea includes but is not limited to congestive heart failure, pneumonia, wheezing, pneumothorax, pulmonary embolism Narrative Course This patient presents with the chief complaint of dyspnea. Her lungs are clear. She is able to speak in complete sentences without difficulty breathing. Her oxygen saturation is 97% on room air. The patient reports that she has plenty of medications at home. I have suggested treatment with steroids for acute exacerbation of asthma. Diagnosis Primary Impression: Asthma Qualified Codes: J45.21 - Mild intermittent asthma with (acute) exacerbation Patient Instructions: Asthma (DC), General Instructions Med/Other Pt SpecificInfo: Prescription(s) given Scripts Prednisone (Prednisone) 50 Mg Tab 50 MG PO DAILY for 5 Days, #5 TAB 0 Refills Prov: Ashlyn Hudson MD 11/02/17 Disposition: 01 DISCHARGE HOME Condition: Stable Ashlyn Hudson MD Nov 02, 2017 13:23
[2017-11-02 14:01] VITALS: BP 138/64
== END 2017-11-02 14:01 | disposition home or self-care (01) ==
LOC: NEPD 11:59
DX: J45.21 Mild intermittent asthma with (acute) exacerbation (principal)
CPT/HCPCS: 99283

== ENCOUNTER 2017-11-22 05:29 | Emergency (ER) | payer SELFPAY ==
[~2017-11-22] VITALS: Ht 165.1 cm; Wt 76.0 kg
[~2017-11-22 05:29] MED LIST changes: -IBUP1TAB7 PO; +PRED50 PO; -PROM12.54 PO; -ROBA500T PO
[2017-11-22 05:31] VITALS: BP 125/80; PULSE 82; RESP 16; TEMP 97.5; O2SAT 100
--- NOTE | 2017-11-22 05:49 | PD ---
HPI Chief Complaint: Injury Time Seen by Provider: 05:49 Travel History International Travel<30 days: No Contact w/Intl Traveler<30days: No Traveled to known affect area: No History of Present Illness HPI 52-year-old female presents emergency department for evaluation of left fifth toe pain 1 week. Patient states she instructed a week ago. It BEcame bruised at the base. She navid taped it to the fourth toe on the left foot. She states pain is exacerbated with movement or when she has to wear her boots for work. Pain radiates to the dorsal aspect of the foot. She states she cannot stand it it is so severe, constant, throbbing. Denies any fever chills. No new injury. No other symptoms to report. PFSH Past Medical History Asthma: Yes Anxiety: Yes Depression: Yes Heart Rhythm Problems: No Cancer: No Cardiovascular Problems: Yes Chest Pain: Yes Diminished Hearing: No Gastrointestinal Disorders: Yes Musculoskeletal: Yes Psychiatric: Yes Respiratory: Yes (Asthma) Immunizations Current: Yes Myocardial Infarction: No ?: Not Menopausal: Yes : 6 Para: 4 Miscarriage: 1 : 1 Tubal Ligation: Yes Social History Alcohol Use: Yes (1-2 OCCASIONAL PER PT) Tobacco Use: No Substance Use: No Allergies-Medications (Allergen,Severity, Reaction): Coded Allergies: Sulfa (Sulfonamide Antibiotics) (Verified Allergy, Severe, Localized Edema , 11/22/17) swelling of lips tramadol (Verified Allergy, Severe, Bradycardia, 11/22/17) codeine (Verified Adverse Reaction, Intermediate, Itching/nauseous, 11/22/17 ) hydrocodone (Verified Adverse Reaction, Intermediate, Itching/nauseous, 11/22/17) Reported Meds & Prescriptions Reported Meds & Active Scripts Active Phenergan (Promethazine HCl) 25 Mg Tablet 25 Mg PO Q6H PRN Argyle (Hydrocodone-Acetaminophen) 5 Mg-325 Mg Tab 1 Tab PO Q6H PRN Ibuprofen 800 Mg Tab 800 Mg PO Q8H PRN Review of Systems Except as stated in HPI: all other systems reviewed are Neg Physical Exam Narrative GENERAL: Well-nourished, well-developed female patient, ambulatory and in no acute distress. SKIN: Focused skin assessment warm/dry. HEAD: Normocephalic. EYES: No scleral icterus. No injection or drainage. NECK: Supple, trachea midline. No JVD or lymphadenopathy. CARDIOVASCULAR: Regular rate and rhythm without murmurs, gallops, or rubs. RESPIRATORY: Breath sounds equal bilaterally. No accessory muscle use. MUSCULOSKELETAL: No cyanosis, or edema. Ecchymosis at the base of the left fifth toe. No obvious deformity. Cap refill within normal limits. Distal pulses are palpable. BACK: Nontender without obvious deformity. No CVA tenderness. Data Data Last Documented VS Vital Signs Date Time Temp Pulse Resp B/P (MAP) Pulse Ox O2 Delivery O2 Flow Rate FiO2 11/22/17 05:31 97.5 82 16 125/80 (95) 100 Orders Orders Foot, Complete ([id number]) (11/22/17 ) Ed Discharge Order (11/22/17 06:44) ^ Other Nursing Orders (11/22/17 06:44) MDM Medical Decision Making Medical Screen Exam Complete: Yes Emergency Medical Condition: Yes Medical Record Reviewed: Yes Differential Diagnosis Fracture versus sprain versus contusion versus dislocation Narrative Course 52-year-old female presents emergency department for evaluation of left fifth toe pain. Patient does have bruising at the base of the left fifth toe, otherwise is without deformity. Patient appears otherwise well. Last Impressions Foot X-Ray 11/22/17 0000 Signed Impressions: Service Date/Time: November 05:58 - CONCLUSION: Fifth toe fracture Chilango Robledo MD Patient's fifth toe was navid taped. She is advised to follow-up with podiatry. She will be provided pain control. Patient will be discharged home at this time. Diagnosis Primary Impression: Toe fracture, left Qualified Codes: S92.522A - Displaced fracture of middle phalanx of left lesser toe(s), initial encounter for closed fracture Referrals: [employer] Patient Instructions: General Instructions, Toe Fracture (ED) Departure Forms: Tests/Procedures, Work Release Enter return to work date: Nov 23, 2017 Additional Instructions: Tape the fourth and fifth toes until instructed otherwise by a java j2ee technical lead Call a java j2ee technical lead today and schedule an appointment for follow-up within the next week Ice and elevate to reduce pain Return immediately with any acute worsening symptoms Med/Other Pt SpecificInfo: Prescription(s) given Scripts Promethazine (Phenergan) 25 Mg Tablet 25 MG PO Q6H Y for NAUSEA OR VOMITING, #10 TAB 0 Refills Prov: Yuridia Mark 11/22/17 Hydrocodone-Acetaminophen (Argyle) 5 Mg-325 Mg Tab 1 TAB PO Q6H Y for PAIN GREATER THAN 5, #12 TAB 0 Refills Prov: Yuridia Mark 11/22/17 Ibuprofen (Ibuprofen) 800 Mg Tab 800 MG PO Q8H Y for Pain/Inflammation, #30 TAB 0 Refills Prov: Yuridia Mark 11/22/17 Disposition: 01 DISCHARGE HOME Condition: Stable Yuridia Mark Nov 22, 2017 05:49
--- NOTE | 2017-11-22 06:38 | RADRPT ---
EXAM DATE/TIME: 11/22/2017 05:58 [facility] COMPARISON: No previous studies available for comparison. INDICATIONS : Stubbed left fifth toe three days ago and continous shooting pain from toe to top of foot. MEDICAL HISTORY : None. SURGICAL HISTORY : None. ENCOUNTER: Initial ACUITY: 3 days PAIN SCORE: 10/10 LOCATION: Left toe and foot FINDINGS: There is a minimally displaced oblique fracture involving the mid diaphysis of the fifth toe proximal phalanx. The adjacent articulations are intact. The remainder of the foot is unremarkable CONCLUSION: Fifth toe fracture Chilango Robledo MD on November 22, 2017 at 6:35 Board Certified Radiologist. This report was verified electronically.
[2017-11-22] MEDS ORDERED: IBUP1TAB7 PO (06:46)
[2017-11-22] MEDS ORDERED: NORC5TAB PO (06:50)
[2017-11-22] MEDS ORDERED: PROM25TA10 PO (06:50)
== END 2017-11-22 07:00 | disposition home or self-care (01) ==
LOC: NEPD 05:29
DX: S92.512A Displaced fracture of proximal phalanx of left lesser toe(s), initial encounter for closed fracture (principal); X58.XXXA Exposure to other specified factors, initial encounter; J45.909 Unspecified asthma, uncomplicated; F41.9 Anxiety disorder, unspecified; F32.9 Major depressive disorder, single episode, unspecified
CPT/HCPCS: 73630; 99283

== ENCOUNTER 2018-01-28 04:40 | Emergency (ER) | payer SELFPAY ==
[~2018-01-28] VITALS: Ht 165.1 cm; Wt 75.0 kg
[~2018-01-28 04:40] MED LIST changes: +IBUP1TAB7 PO; +NORC5TAB PO; -PRED50 PO; +PROM25TA10 PO
[2018-01-28 04:43] VITALS: BP 133/81; PULSE 79; RESP 18; TEMP 98; O2SAT 100
[2018-01-28] MEDS ORDERED: LEXA10TA PO (05:11)
[2018-01-28] MEDS ORDERED: SODIUM CHLOR 0.9% 1000 ML INJ 1,000 ML IV ONE (05:15)
[2018-01-28 05:28] VITALS: PULSE 69; RESP 18; O2SAT 97
[2018-01-28 05:30] VITALS: BP_SYST 134; BP_SYST 138; BP_SYST 146; BP_DIAS 62; BP_DIAS 89; BP_DIAS 90
--- NOTE | 2018-01-28 05:37 | RADRPT ---
EXAM DATE: 01/28/2018 5:26 AM EDT AGE/SEX: 52 years / Female INDICATIONS: Dizziness this morning. CLINICAL DATA: This is the patient's initial encounter. Patient reports that signs and symptoms have been present for 1 day and indicates a pain score of 0/10. MEDICAL/SURGICAL HISTORY: None. None. COMPARISON: No prior exams available for comparison. FINDINGS: Single AP view the chest. The lungs are clear. Cardiomediastinal silhouette within normal limits. No evidence of pleural effusion or pneumothorax. CONCLUSION: No acute cardiopulmonary disease identified. Electronically signed by: Xu Forbes MD 01/28/2018 5:36 AM EDT
[2018-01-28 05:38] LABS: AUTOMATED NEUTROPHIL # 2.2 TH/MM3 (1.8-7.7); BASOPHIL % 0.7 % (0.0-2.0); EOSINOPHIL % 0.8 % (0.0-4.0); HEMATOCRIT 40.6 % (35.0-46.0); HEMOGLOBIN 13.6 GM/DL (11.6-15.3); LYMPH % 32.4 % (9.0-44.0); LYMPHOCYTE # 1.2 TH/MM3 (1.0-4.8); MEAN CELL VOLUME 96.2 FL (80.0-100.0); MEAN CORPUSCULAR HEMOGLOBIN 32.4 PG (27.0-34.0); MEAN CORPUSCULAR HGB CONC 33.6 % (32.0-36.0); MEAN PLATELET VOLUME 7.4 FL (7.0-11.0); MONO % 5.7 % (0.0-8.0); MONOCYTE # 0.2 TH/MM3 (0-0.9); NEUT % 60.4 % (16.0-70.0); PLATELET COUNT 194 TH/MM3 (150-450); RED BLOOD COUNT 4.22 MIL/MM3 (4.00-5.30); RED CELL DISTRIBUTION WIDTH 13.8 % (11.6-17.2); WHITE BLOOD COUNT 3.6 TH/MM3 (4.0-11.0)
[2018-01-28 06:01] LABS: ALBUMIN 3.7 GM/DL (3.4-5.0); ALT (GPT) 42 U/L (10-53); AST (GOT) 33 U/L (15-37); BICARBONATE 22.7 MEQ/L (21.0-32.0); BLOOD UREA NITROGEN 9 MG/DL (7-18); CALCIUM 8.6 MG/DL (8.5-10.1); CHLORIDE 109 MEQ/L (98-107); CREATININE 0.78 MG/DL (0.50-1.00); GLOMERULAR FILTRATION RATE 77 ML/MIN (>89); GLUCOSE,RANDOM 92 MG/DL (74-106); MAGNESIUM 2.2 MG/DL (1.5-2.5); SODIUM (NA) 143 MEQ/L (136-145)
[2018-01-28 06:11] LABS: ALKALINE PHOSPHATASE 71 U/L (45-117); TOTAL BILIRUBIN ADULT 0.2 MG/DL (0.2-1.0); TOTAL PROTEIN 7.3 GM/DL (6.4-8.2); TROPONIN I LESS THAN 0.02 NG/ML (0.02-0.05)
--- NOTE | 2018-01-28 06:28 | PD ---
HPI Chief Complaint: General Weakness Time Seen by Provider: 04:55 Travel History International Travel<30 days: No Contact w/Intl Traveler<30days: No Traveled to known affect area: No History of Present Illness HPI The patient is a 52 year old female who presents to the [facility] emergency department with a history of lightheaded sensation that she reports began this morning. She reports that she had generalized weakness and fatigue. She reports that she felt nauseated. She reports that she had gotten up to get ready for work. She decided to take a shower to see if that would help, however the symptoms became worse. She reports that she had to sit down in the shower in order to avoid passing out. She reports that last week she did have nausea intermittently throughout the week but no vomiting. She does have a cough currently, however she reports having a chronic cough related to postnasal drip and allergies. She denies any productivity to the cough. She denies having any purulent nasal discharge. She denies having any known fevers. She denies having any rashes although she does have a cut to the right anterior robert related to shaving. She denies having any new or increased pain or drainage from that site. She denies having any chest pain, chest pressure, or shortness of breath. On review of systems otherwise, she denies having neck pain, abdominal pain, diarrhea, urinary symptoms, or neurologic symptoms. [facility] Past Medical History Narrative Medical The patient's past medical history is significant for anxiety and depression. Asthma: Yes Anxiety: Yes Depression: Yes Heart Rhythm Problems: No Cancer: No Cardiovascular Problems: Yes Chest Pain: Yes Diminished Hearing: No Gastrointestinal Disorders: Yes Musculoskeletal: Yes Psychiatric: Yes Respiratory: Yes (Asthma) Immunizations Current: Yes Myocardial Infarction: No Tetanus Vaccination: < 5 Years Influenza Vaccination: Yes ?: Not LMP: menapause Menopausal: Yes : 6 Para: 4 Miscarriage: 1 : 1 Tubal Ligation: Yes Past Surgical History Narrative Surgical The patient's past surgical history is significant for bilateral tubal ligation , right index finger surgery, left wrist ORIF. Social History Alcohol Use: Yes (1-2 glasses of wine daily.) Tobacco Use: No Substance Use: No Allergies-Medications (Allergen,Severity, Reaction): Coded Allergies: Sulfa (Sulfonamide Antibiotics) (Verified Allergy, Severe, Localized Edema , 01/28/18) swelling of lips tramadol (Verified Allergy, Severe, Bradycardia, 01/28/18) codeine (Verified Adverse Reaction, Intermediate, Itching/nauseous, ) hydrocodone (Verified Adverse Reaction, Intermediate, Itching/nauseous, 07/07) Reported Meds & Prescriptions Reported Meds & Active Scripts Active Reported Lexapro (Escitalopram Oxalate) 10 Mg Tab 10 Mg PO DAILY Review of Systems Except as stated in HPI: all other systems reviewed are Neg General / Constitutional: No: Fever Eyes: No: Visual changes HENT: Positive: Lightheadedness, Congestion, No: Headaches, Vertigo, Rhinorrhea Cardiovascular: No: Chest Pain or Discomfort Respiratory: Positive: Cough, No: Shortness of Breath Gastrointestinal: Positive: Nausea, No: Vomiting, Diarrhea, Abdominal Pain, Changes in Bowel Habits, Indigestion, Loss of Appetite Genitourinary: No: Dysuria Musculoskeletal: No: Pain Skin: No Rash Neurologic: Positive: Dizziness, No: Weakness, Focal Abnormalities, Change in Mentation, Slurred Speech, Sensory Disturbance Psychiatric: No: Depression Endocrine: No: Polydipsia Hematologic/Lymphatic: No: Easy Bruising Physical Exam Narrative General: The patient is a well-developed well-nourished female in no acute distress. Head and Neck exam: Head is normocephalic atraumatic. Eyes: EOMI, pupils are equal round and reactive to light. Nose: Midline septum with pink mucous membranes Mouth: Dentition unremarkable. Moist mucus membranes. Posterior oropharynx is not erythematous. No tonsillar hypertrophy. Uvula midline. Airway patent. Neck: No palpable lymphadenopathy. No nuchal rigidity. No thyromegaly. Cardiovascular: Regular rate and rhythm without murmurs, gallops, or rubs. No pulse deficit to the extremities on simultaneous auscultation and palpation of her radial artery. Lungs: Clear to auscultation bilaterally. No wheezes, rhonchi, or rales. Abdomen: Soft, without tenderness to palpation in all 4 quadrants of the abdomen. No guarding, rebound, or rigidity. Normal bowel sounds are audible. No tenderness on palpation of McBurney's point. Negative Kevin sign. Extremities: No clubbing, cyanosis, or edema. 2+ pulses in all 4 extremities. No calf tenderness on palpation. Back: No spinous process tenderness to palpation. No costovertebral angle tenderness to palpation. Neurologic Exam: Cranial nerves 2-12 were intact on exam. Strength is 5/5 in all 4 extremities. No sensory deficits noted. Skin Exam: The patient has an abrasion to the right anterior robert related to shaving injury. There is no surrounding erythema or drainage. No fluctuance or crepitus. Intact skin that is warm and dry. Data Data Last Documented VS Vital Signs Date Time Temp Pulse Resp B/P (MAP) Pulse Ox O2 Delivery O2 Flow Rate FiO2 01/28/18 05:30 64 146/62 (90) 70 134/89 (104) 77 138/90 (106) 01/28/18 05:28 18 97 Room Air 01/28/18 04:43 98.0 Orders Orders Electrocardiogram (01/28/18 05:07) Complete Blood Count With Diff (01/28/18 05:07) Comprehensive Metabolic Panel (01/28/18 05:07) Creatine Kinase (Cpk) (01/28/18 05:07) Ckmb (Isoenzyme) Profile (01/28/18 05:07) Troponin I (01/28/18 05:07) Lipase (01/28/18 05:07) Urinalysis - C+S If Indicated (01/28/18 05:07) Magnesium (Mg) (01/28/18 05:07) Thyroid Stimulating Hormone (01/28/18 05:07) Chest, Single Ap (01/28/18 05:07) Iv Access Insert/Monitor (01/28/18 05:07) Ecg Monitoring (01/28/18 05:07) Oximetry (01/28/18 05:07) Orthostatic Vital Signs (01/28/18 05:07) Ed Urine Pregnancytest Poc (01/28/18 05:07) Sodium Chlor 0.9% 1000 Ml Inj (Ns 1000 M (01/28/18 05:15) Sodium Chlorid 0.9% 500 Ml Inj (Ns 500 M (01/28/18 06:45) Metoclopramide Inj (Reglan Inj) (01/28/18 06:45) Labs Laboratory Tests Test 01/28/18 05:00 01/28/18 06:45 White Blood Count 3.6 TH/MM3 Red Blood Count 4.22 MIL/MM3 Hemoglobin 13.6 GM/DL Hematocrit 40.6 % Mean Corpuscular Volume 96.2 FL Mean Corpuscular Hemoglobin 32.4 PG Mean Corpuscular Hemoglobin Concent 33.6 % Red Cell Distribution Width 13.8 % Platelet Count 194 TH/MM3 Mean Platelet Volume 7.4 FL Neutrophils (%) (Auto) 60.4 % Lymphocytes (%) (Auto) 32.4 % Monocytes (%) (Auto) 5.7 % Eosinophils (%) (Auto) 0.8 % Basophils (%) (Auto) 0.7 % Neutrophils # (Auto) 2.2 TH/MM3 Lymphocytes # (Auto) 1.2 TH/MM3 Monocytes # (Auto) 0.2 TH/MM3 Eosinophils # (Auto) 0.0 TH/MM3 Basophils # (Auto) 0.0 TH/MM3 CBC Comment DIFF FINAL Differential Comment Blood Urea Nitrogen 9 MG/DL Creatinine 0.78 MG/DL Random Glucose 92 MG/DL Total Protein 7.3 GM/DL Albumin 3.7 GM/DL Calcium Level 8.6 MG/DL Magnesium Level 2.2 MG/DL Alkaline Phosphatase 71 U/L Aspartate Amino Transf (AST/SGOT) 33 U/L Alanine Aminotransferase (ALT/SGPT) 42 U/L Total Bilirubin 0.2 MG/DL Sodium Level 143 MEQ/L Potassium Level 3.7 MEQ/L Chloride Level 109 MEQ/L Carbon Dioxide Level 22.7 MEQ/L Anion Gap 11 MEQ/L Estimat Glomerular Filtration Rate 77 ML/MIN Total Creatine Kinase 58 U/L Troponin I LESS THAN 0.02 NG/ML Lipase 142 U/L Thyroid Stimulating Hormone 3rd Gen 0.626 uIU/ML MDM Medical Decision Making Medical Screen Exam Complete: Yes Emergency Medical Condition: Yes Medical Record Reviewed: Yes Differential Diagnosis Orthostasis, versus vasovagal near syncope, versus viral syndrome with dehydration, versus electrolyte derangements, versus acute coronary syndrome Narrative Course During the course of the patient's emergency department visit, the patient's history, examination, and differential diagnosis were reviewed with the patient. The patient was placed on a rn cardiac with oximetry and frequent blood pressure monitoring. The patient had IV access obtained and blood work sent for analysis. The patient had a EKG done on arrival. The patient's EKG shows a sinus rhythm heart rate of 69, QRS duration 85 ms, QTC [address] segment elevation. Orthostatic vital signs were done and negative for orthostasis. The patient was initially provided normal saline 1 L IV fluid bolus. The patient was given a second 500 mL bag. The patient was given Reglan 5 mg IV for nausea. The patient's laboratory studies were reviewed and remarkable for white count of 3.6, this is compared to the patient's prior laboratory studies and her leukopenia has been present previously since 2002. She denies ever seeing a general doc for evaluation. CMP is remarkable for GFR 77, chloride 109, cardiac enzymes within normal limits, lipase within normal limits, TSH within normal limits, PT PTT within normal limits. Radiology studies were reviewed and remarkable for a chest x-ray shows no acute cardiopulmonary disease. The patient was instructed regarding the leukopenia, low white blood cell count. She is given a copy of her laboratory studies instructed regarding the importance of following up with a general doc for additional evaluation. She is given the name of the general doc on-call, Dr. Long for follow-up. The patient also reports that she does not currently have a primary care physician. The patient is given the name of the local clinic, [facility] for follow- up. Patient was given a work excuse for 2 days. The patient was instructed to push fluids with electrolyte rich solution such as Gatorade alternating with water. The patient will be discharged home with a prescription for Phenergan for nausea. The patient is resting comfortably and feels better, is alert and in no distress. The patient's results and examination findings were discussed with the patient. The repeat examination is unremarkable and benign. The history, exam, diagnostic testing, and current condition do not suggest any significant pathology to warrant further testing, continued ED treatment, admission, or surgical evaluation at this point. The vital signs have been stable. The patient does not have uncontrollable pain, intractable vomiting, or other significant symptoms. The patient's condition is stable and appropriate for discharge. The patient will pursue further outpatient evaluation with a primary care physician or other designated or consulting physician as indicated in the discharge instructions. The patient is instructed to report back to the emergency department immediately for reexamination in the mean time if she develops any new or worsening signs or symptoms. The patient expressed understanding and was agreeable with this plan. Diagnosis Primary Impression: Lightheadedness Additional Impressions: Nausea Chronic leukopenia Referrals: Veronica Long MD call for appointment [facility] 2 days Patient Instructions: General Instructions, Lightheadedness (ED) Departure Forms: Tests/Procedures, Work Release Enter return to work date: Jan 30, 2018 Additional Instructions: The patient was instructed regarding the leukopenia, low white blood cell count. She is given a copy of her laboratory studies instructed regarding the importance of following up with a general doc for additional evaluation. She is given the name of the general doc on-call, Dr. Long for follow-up. The patient also reports that she does not currently have a primary care physician. The patient is given the name of the local clinic, [facility] for follow- up. Patient was given a work excuse for 2 days. The patient was instructed to push fluids with electrolyte rich solution such as Gatorade alternating with water. The patient will be discharged home with a prescription for Zofran. Med/Other Pt SpecificInfo: Prescription(s) given Scripts Promethazine (Phenergan) 25 Mg Tablet 25 MG PO Q8HR Y for NAUSEA OR VOMITING, #6 TAB 0 Refills Prov: Loraine Mccallum MD 01/28/18 Disposition: 01 DISCHARGE HOME Condition: Stable Loraine Mccallum MD Jan 28, 2018 06:28
[2018-01-28] MEDS ORDERED: SODIUM CHLORID 0.9% 500 ML INJ 500 ML IV ONE (06:45)
[2018-01-28] MEDS ORDERED: METOCLOPRAMIDE HCL 10 MG/2 ML VIAL IV PUSH ONE (06:45)
[2018-01-28] MEDS ORDERED: PROM25TA10 PO (07:16)
[2018-01-28 07:22] VITALS: BP 130/79; PULSE 73; RESP 15; O2SAT 98
[2018-01-28 07:25] LABS: BILIRUBIN, URINE NEG (NEG); BLOOD, URINE NEG (NEG); GLUCOSE,URINE NEG (NEG); HYALINE CAST, URINE 6 /lpf (RARE); KETONE, URINE TRACE mg/dL (NEG); MUCUS URINE FEW /lpf (OCC); NITRITE,URINE NEG (NEG); PH, URINE 5.5 (5.0-8.5); SQUAMOUS EPITHELIAL CELL URINE 2 /hpf (0-5); URINE COLOR YELLOW (YELLW/STRAW); URINE LEUKOCYTE ESTERASE NEG (NEG)
[2018-01-28 08:26] VITALS: BP 132/78
--- NOTE | 2018-01-28 14:41 | EKG ---
Date Performed: 01/28/2018 Time Performed: 05:17:39 PTAGE: 52 years EKG: Sinus rhythm NORMAL ECG Since the PREVIOUS TRACING , no significant change noted PREVIOUS TRACIN11/07/2016 09.50 DOCTOR: Jaspreet Landaverde Interpretating Date/Time 01/28/2018 14:40:09
== END 2018-01-28 08:29 | disposition home or self-care (01) ==
LOC: NEPC 04:40
DX: R42 Dizziness and giddiness (principal); R11.0 Nausea; R53.1 Weakness; D72.819 Decreased white blood cell count, unspecified; F32.9 Major depressive disorder, single episode, unspecified; F41.9 Anxiety disorder, unspecified; Z79.899 Other long term (current) drug therapy
CPT/HCPCS: 71045; 80053; 81001; 82550; 83690; 83735; 84443; 84484; 84703; 85025; 93005; 96361; 96374; 99285; J2765; J7030; J7040